=== PATIENT | female | born 1955 | race Caucasian/White ===

== ENCOUNTER 2022-11-28 08:59 | Emergency (ER) | payer MEDICARE, OTHER ==
[2022-11-28 09:33] VITALS: BP 166/85
[2022-11-28 09:36] LABS: BASOPHILS % (AUTO) 0.6 %; EOSINOPHILS % (AUTO) 0.7 %; HCT - HEMATOCRIT 46.9 % (37.0-47.0); HGB - HEMOGLOBIN 15.1 g/dL (12.0-16.0); LYMPHOCYTES # (AUTO) 1.8 10^3/uL (1.5-3.5); LYMPHOCYTES % (AUTO) 32.3 %; MEAN CORPUSCULAR HEMOGLOBIN 28.9 pg (27.0-31.0); MEAN CORPUSCULAR HGB CONC 32.2 g/dL (32.0-36.0); MEAN CORPUSCULAR VOLUME 89.7 fL (81.0-99.0); MEAN PLATELET VOLUME 9.4 fL (7.9-10.8); MONOCYTES # (AUTO) 0.5 10^3/uL (0.0-1.0); MONOCYTES % (AUTO) 8.9 %; NEUTROPHILS # (AUTO) 3.1 10^3/uL (1.5-6.6); NEUTROPHILS % (AUTO) 57.1 %; PLT - PLATELET COUNT 241 10^3/uL (130-450); RED BLOOD COUNT 5.23 10^6/uL (4.20-5.40); WHITE BLOOD COUNT 5.4 x10^3/uL (4.8-10.8)
[2022-11-28] MEDS ORDERED: SODIUM CHLORIDE 0.9% 1,000 ML IV STA (09:37)
[2022-11-28] MEDS ORDERED: iohexoL-300 100 ML VIAL ONE (09:42)
[2022-11-28 09:43] LABS: PT - PROTHROMBIN TIME 11.1 secs (9.9-12.6)
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
[2022-11-28 09:51] LABS: ALBUMIN 4.2 g/dL (3.2-5.5); ALBUMIN/GLOBULIN RATIO 1.4 (1.0-2.2); BILIRUBIN,TOTAL 0.7 mg/dL (0.2-1.0); CALCIUM 9.3 mg/dL (8.5-10.3); POTASSIUM 3.6 mmol/L (3.5-5.0); TOTAL PROTEIN 7.2 g/dL (6.7-8.2)
[2022-11-28] MEDS ORDERED: iohexoL-300 100 ML VIAL IVP ONE (10:19)
--- NOTE | 2022-11-28 10:38 | CT Report ---
PROCEDURE: ABDOMEN/PELVIS W INDICATIONS: rectal bleeding/pain CONTRAST: 100ML OMNI 300 TECHNIQUE: After the administration of IV contrast, 5 mm thick sections acquired from the diaphragms to the symp hysis. 5 mm thick coronal and sagittal reformats were acquired. For radiation dose reduction, the f ollowing was used: automated exposure control, adjustment of mA and/or kV according to patient size. COMPARISON: None. FINDINGS: Image quality: Excellent. ABDOMEN: Lung bases: Lung bases are clear. Heart size is normal. A small hiatal hernia is incidentally note d. Solid organs: Along the posterior aspect of the right liver, there is an apparent cyst seen, as on se susan 2 image 12 measuring 17 mm. The spleen demonstrates normal size and demonstrates no suspicious lesions. Gallbladder wall does not appear thickened. Biliary system is non dilated. Pancreas enhances norm ally. There is a right adrenal nodule, as on series 3 image 16 measuring 13 mm and 93 Hounsfield units. No left adrenal nodules. Kidneys demonstrate normal size and enhancement, without hydronephrosis. Peritoneum and bowel: No ashwin distal colonic masses are detected. Within the distal descending colon and within the proximal sigmoid colon, there is moderate generaliz ed wall thickening seen, with surrounding inflammatory change. Diverticula formation can be seen with in the sigmoid colon. No free air is seen. No loculated abscess can be seen. No significant free fluid can be seen. The more proximal colon is unremarkable. No dilated loops of small bowel are seen. A normal appendix is incidentally noted. The stomach is decompressed at the time of this study, which limits its evaluation. Nodes and vessels: No retroperitoneal or mesenteric adenopathy by size criteria. Aorta and inferior vena cava are normal in size. Miscellaneous: No ventral hernias. Postoperative change of the anterior abdominal wall can be seen, with numerous clips. PELVIS: Genitourinary: Bladder wall thickness is normal. The uterus demonstrates an unremarkable appearance for age. No adnexal masses are seen. Miscellaneous: No inguinal hernias or adenopathy. Bones: No suspicious bony lesions. No vertebral body compression fractures. IMPRESSION: Distal colonic wall thickening can be seen. Please correlate with potential infectious a nd inflammatory causes of colitis. (Sigmoid diverticulosis is seen. However, the degree of colonic in flammation is broader than is normally seen in diverticulitis.) No findings of perforation or abscess can be seen. A colonoscopy is recommended for further evaluation, following treatment of the patient's current cli nical episode, for evaluation of a potential underlying mass. A 1.3 cm right adrenal nodule is seen. If clinically appropriate, please consider a follow-up adrenal protocol MRI for further evaluation. Additional findings: Small hiatal hernia Apparent liver cyst Postoperative change of the anterior abdominal wall Normal appendix Reviewed by: Esteban Flaherty MD on 11/28/2022 9:37 AM ROLANDO Approved by: Esteban Flaherty MD on 11/28/2022 9:37 AM ROLANDO Station ID: [id number]
== END 2022-11-28 11:45 | disposition home or self-care (01) ==
LOC: ED 08:59
DX: K52.9 Noninfective gastroenteritis and colitis, unspecified (principal); K62.5 Hemorrhage of anus and rectum
CPT/HCPCS: 36415; 74177; 80053; 82272; 83690; 85025; 85610; 86850; 86900; 86901; 99284; Q9967